=== PATIENT | female | born 2000 | race American Indian/Alaskan Native ===

== ENCOUNTER 2020-12-25 11:21 | Outpatient (CLI) | payer OTHER ==
[2020-12-25 12:34] LABS: Hematocrit 42.6 % (30.3-42.9); Hemoglobin 14.5 gm/dl (10.1-14.3); Mean Corpuscular HGB Conc 34 % (30-34); Mean Corpuscular Volume 94 fl (79-97); Platelet Count 157 K/mm3 (140-440); Red Blood Count 4.55 M/mm3 (3.65-5.03); Red Cell Distribution Width 14.7 % (13.2-15.2)
[2020-12-25 12:44] LABS: Bacteria,Urine 4+ /HPF (Negative); Bilirubin,Urine NEG (Negative); Blood,Urine NEG (Negative); Color,Urine Amber (Yellow); Mucus,Urine 2+ /HPF; Urobilinogen,Urine < 2.0 mg/dL (<2.0)
[2020-12-25 12:45] LABS: Protein,Urine >500 mg/dL (Negative)
[2020-12-25 12:57] LABS: Alanine Aminotransferase 10 units/L (7-56)
--- NOTE | 2020-12-25 13:02 | Ultrasound Report ---
Limited OB Ultrasound Biophysical profile ultrasound HISTORY: Here to evaluate RONNY and BPP. TECHNIQUE: Grayscale and color imaging performed. COMPARISON: None FINDINGS: There is a single viable intrauterine gestation with cephalic presentation and RONNY of 24 cm. Heart ra te is 147 bpm. On biophysical profile, the fetus received a score of 2 out of 2 for movement, RONNY, tone, and breathi ng. Total score was 8 out of 8. IMPRESSION: Single viable intrauterine gestation as above with normal BPP. Signer Name: Stanislaw Valentine MD Signed: 12/25/2020 12:57 PM Workstation Name: [id number]
[2020-12-25 13:16] VITALS: BP 140/85
[2020-12-25] MEDS ORDERED: LACTATED RINGERS 1,000 ML IV SCH (13:30)
[2020-12-25] MEDS ORDERED: ceFAZolin/NS 1 GM/50 ML 1 GM/50 ML BAG IV ONE (14:16)
== END 2020-12-25 14:27 | disposition home or self-care (01) ==
LOC: TRG 11:21 → APU 11:22 → TRG 14:27
PROVIDERS: ATTEND Obstetrics & Gynecology
DX: O26.893 Other specified pregnancy related conditions, third trimester (principal); R03.0 Elevated blood-pressure reading, without diagnosis of hypertension; O47.03 False labor before 37 completed weeks of gestation, third trimester; Z3A.36 36 weeks gestation of pregnancy
CPT/HCPCS: 36415; 59025; 76815; 76819; 81001; 82565; 83615; 84450; 84460; 84550; 85027; 87086; 96361; 96365; J0690; J7120; 96360

== ENCOUNTER 2020-12-28 21:43 | Inpatient (IN) | payer OTHER ==
[2020-12-28] MEDS ORDERED: OXYTOCIN DRIP 30 UNITS/500 ML BAG IV SCH (23:45)
[2020-12-28] MEDS ORDERED: miSOPROStol 25 MCG TAB VG SCH (23:45)
[2020-12-28] MEDS ORDERED: TERBUTALINE 1 MG/1 ML INJ SUB-Q PRN (23:54)
[2020-12-28] MEDS ORDERED: ePHEDrine SULFATE 50 MG/1 ML INJ IV PRN (23:54)
[2020-12-28] MEDS ORDERED: LIDOCAINE (2%) 20 MG/1 ML VIAL 20 ML MDV INFILTRATI ONE (23:54)
[2020-12-28] MEDS ORDERED: AMPICILLIN/NS 2 GM/100 ML 2 GM/100 ML BAG IV ONE (23:54)
[2020-12-28] MEDS ORDERED: MINERAL OIL 30 ML ORAL LIQD PO PRN (23:54)
[2020-12-29] MEDS: LACTATED RINGERS 1,000 ML IV SCH ×5 (00:12→17:19)
[2020-12-29 00:35] LABS: Hematocrit 38.7 % (30.3-42.9); Hemoglobin 13.6 gm/dl (10.1-14.3); Mean Corpuscular HGB Conc 35 % (30-34); Mean Corpuscular Volume 93 fl (79-97); Platelet Count 155 K/mm3 (140-440); Red Blood Count 4.15 M/mm3 (3.65-5.03); Red Cell Distribution Width 14.3 % (13.2-15.2)
[2020-12-29 01:14] LABS: Alanine Aminotransferase 8 units/L (7-56)
[2020-12-29 02:49] LABS: Uric Acid 6.3 mg/dL (3.5-7.6)
--- NOTE | 2020-12-29 03:40 | History and Physical Report ---
History of Present Illness Date of examination: 12/29/20 Date of admission: 12/29/2020 Chief complaint: IOL History of present illness: 20-year-old G1, P0 at 37+2 admitted for induction of labor secondary to preeclampsia and gestational thrombocytopenia. The patient initiated her care late in at 18 weeks estimated gestational age. Her course is also complicated by STD exposure for which the patient was treated and history of abnormal 1 hour glucose tolerance test. Past History Past Medical History: no pertinent history Past Surgical History: no surgical history Social history: single - Obstetrical History Expected Date of Delivery: 01/17/21 Actual Gestation: 37 Week(s) 2 Day(s) : 1 Para: 0 Hx # Term Pregnancies: 0 Number of Pregnancies: 0 Spontaneous Abortions: 0 Induced : 0 Number of Living Children: 0 Medications and Allergies Allergies Allergy/AdvReac Type Severity Reaction Status Date / Time shellfish derived AdvReac Intermediate Nausea Verified 12/25/20 11:47 Active Meds: Active Medications Butorphanol Tartrate (Butorphanol 2 Mg/1 Ml Inj) 2 mg IV Q2H PRN PRN Reason: Pain , Severe (7-10) Ephedrine Sulfate (Ephedrine Sulfate 50 Mg/1 Ml Inj) 10 mg IV Q2M PRN PRN Reason: Hypotension Oxytocin/Sodium Chloride (Pitocin/Ns 30 Unit/500ml) 30 units in 500 mls @ 2 mls/hr IV TITR ROSA MARIA; Protocol Lactated Ringer's (Lactated Ringers) 1,000 mls @ 125 mls/hr IV DIRECT ROSA MARIA Last Admin: 12/29/20 00:12 Dose: 125 mls/hr Documented by: Oxytocin/Sodium Chloride (Pitocin/Ns 30 Unit/500ml) 30 units in 500 mls @ 40 mls/hr IV TITR ROSA MARIA; Protocol Mineral Oil (Mineral Oil 30 Ml Oral Liqd) 30 ml PO QHS PRN PRN Reason: Constipation Misoprostol (Misoprostol 25 Mcg Tab) 25 mcg VG Q4H ROSA MARIA Last Admin: 12/29/20 00:33 Dose: 25 mcg Documented by: Terbutaline Sulfate (Terbutaline 1 Mg/1 Ml Inj) 0.25 mg SUB-Q ONCE PRN PRN Reason: Hyperstimulation/Hypertonicity Review of Systems All systems: negative - Vital Signs Vital signs: Vital Signs Pulse BP 100 H 127/88 12/28/20 22:23 12/28/20 22:23 Temp Pulse Resp BP Pulse Ox 98.9 F 70 18 137/97 83 L 12/28/20 22:29 12/29/20 03:34 12/28/20 22:29 12/29/20 03:34 12/29/20 03:32 - Physical Exam Breasts: Positive: deferred Cardiovascular: Regular rate Lungs: Positive: Clear to auscultation Abdomen: Positive: normal appearance Results Result Diagrams: 12/28/20 23:13 12/28/20 23:13 Abnormal lab results 12/28/20 12/28/20 Range/Units 23:13 23:13 MCH 33 H (28-32) pg MCHC 35 H (30-34) % Creatinine 0.5 L (0.6-1.2) mg/dL Lactate Dehydrogenase 244 H (91-180) units/L All other labs normal. Assessment and Plan - Patient Problems (1) Preeclampsia Current Visit: Yes Status: Acute Plan to address problem: admit for IOL
[2020-12-29] MEDS: AMPICILLIN/NS 1 GM/50 ML 1 GM/50 ML BAG IV SCH ×3 (05:06→16:08)
[2020-12-29] MEDS ORDERED: DINOPROSTONE 10 MG VAG SUPP VG ONE (05:40)
[2020-12-29 06:38] LABS: Bilirubin,Urine NEG (Negative); Blood,Urine NEG (Negative); Color,Urine Yellow (Yellow); Mucus,Urine FEW /HPF; Urobilinogen,Urine < 2.0 mg/dL (<2.0)
[2020-12-29] MEDS ORDERED: OXYTOCIN 10 UNIT/1 ML INJ ONE (10:00)
--- NOTE | 2020-12-29 10:39 | Event Note ---
Date: 12/29/20 During cervical exam, SROM with clear fluid. Cervix /-2. FSE placed. Regular uterine contractions
[2020-12-29] MEDS: OXYTOCIN DRIP 30 UNITS/500 ML BAG IV SCH ×2 (11:39→15:01)
[2020-12-29] MEDS: BUTORPHANOL 2 MG/1 ML INJ IV PRN ×2 (13:05→15:34)
[2020-12-29] MEDS ORDERED: TERBUTALINE 1 MG/1 ML INJ SUB-Q ONE (13:18)
[2020-12-29] MEDS ORDERED: LIDOCAINE JELLY (2%) 5 ML TOPICAL TP ONE (13:49)
[2020-12-29] MEDS ORDERED: METOCLOPRAMIDE 10 MG/2 ML INJ ONE (18:47)
[2020-12-29] MEDS ORDERED: BICITRA ORAL LIQD 30ML ONE (18:47)
[2020-12-29] MEDS ORDERED: FAMOTIDINE 20 MG/2 ML INJ IV ONE (18:48)
--- NOTE | 2020-12-29 18:52 | Anesthesia Day of Surgery ---
Anesthesia Day of Surgery - Day of Surgery Patient Examined: Yes Patient H&P Reviewed: Yes Patient is NPO: Yes
--- NOTE | 2020-12-29 18:52 | Anesthesia Consultation ---
Anesthesia Consult and Med Hx Date of service: 12/29/20 - Airway Anesthetic Teeth Evaluation: Good ROM Head & Neck: Adequate Mental/Hyoid Distance: Adequate Mallampati Class: Class II Intubation Access Assessment: Probably Good - Pulmonary Exam CTA: Yes - Cardiac Exam Cardiac Exam: RRR - Pre-Operative Health Status ASA Pre-Surgery Classification: ASA3 Proposed Anesthetic Plan: Spinal - Pulmonary Hx Asthma: Yes (as a child) - Cardiovascular System Hx Hypertension: Yes (PIH) - Central Nervous System Hx Seizures: No Hx Psychiatric Problems: No - Endocrine Hx Renal Disease: No Hx Hypothyroidism: No Hx Hyperthyroidism: No - Hematic Hx Anemia: Yes Hx Sickle Cell Disease: No - Other Systems Hx Alcohol Use: Yes
[2020-12-29] MEDS ORDERED: ceFAZolin/STERILE WATER 2 GM/20 ML SYRINGE IV NR (19:00)
[2020-12-29] MEDS ORDERED: FAMOTIDINE 20 MG/2 ML INJ IV NR (19:00)
[2020-12-29] MEDS ORDERED: METOCLOPRAMIDE 10 MG/2 ML INJ IV NR (19:00)
[2020-12-29] MEDS ORDERED: LANOLIN/ZINC/DIMETHICONE (LANSINOH) 7 GM TP PRN (19:37)
[2020-12-29] MEDS ORDERED: NALOXONE 0.4 MG/1 ML INJ IV PRN (19:37)
[2020-12-29] MEDS ORDERED: WITCH HAZEL/ GLYCERIN PAD TP PRN (19:37)
--- NOTE | 2020-12-29 19:37 | Event Note ---
Date: 12/29/20 The patient is being induced for preeclampsia. Her intrapartum course has been complicated by nonreassuring heart rate tracing with evidence of late decelerations. Unable to obtain adequate contractility secondary to the tracing. The patient was counseled for primary delivery. The risk and benefits of the procedure were discussed with the patient.
[2020-12-29] MEDS ORDERED: MORPHINE 4 MG/1 ML INJ IV PRN (19:38)
[2020-12-29] MEDS ORDERED: ONDANSETRON 4 MG/2 ML INJ IV PRN (19:38)
[2020-12-29] MEDS ORDERED: IBUPROFEN 600 MG TAB PO PRN (19:38)
[2020-12-29] MEDS ORDERED: ACETAMINOPHEN 325 MG TAB PO PRN (19:38)
[2020-12-29] MEDS ORDERED: KETOROLAC 30 MG/1 ML INJ IV PRN (19:38)
--- NOTE | 2020-12-29 19:42 | Procedure Note ---
OB Delivery Note - Delivery Date of Delivery: 12/29/20 Surgeon: MIKI ARNOLD Estimated blood loss: other (600ml) - Section Preop diagnosis: nonreassuring FHR tracing Postop diagnosis: same section procedure: section, primary low transverse Disposition: PACU Complications: none - A at 1 minute: 8 at 5 minutes: 9 Infant Gender: Male (weight 6lbs 7oz)
--- NOTE | 2020-12-29 19:42 | Operative Report ---
Operative Report Operative Report: Date of surgery: December 29, 2020 Preoperative diagnosis: at 37+2 weeks; preeclampsia; nonreassuring f etal heart rate tracing Postoperative diagnosis: Same as above Procedure: Primary low transverse delivery Surgeon: Niharika Payne M.D. Anesthesia: Regional Estimated blood loss: 600 mL IV fluids: 1 L Urine output: 100 mL Findings: Liveborn male infant with Apgars of 8 and 9 weight 6 pounds 7 ounces Indications: 20-year-old G1, P0 at 37+2 weeks presents for induction of labor for preeclampsia. Intrapartum course is complicated by nonreassuring heart rate tracing Procedure: The patient was taken to the operating room and given regional anesthesia without complication. She was prepped and draped in a normal sterile fashion. A Pfannenstiel skin incision was made down to layer the fascia which was nicked in the midline extended laterally with the Bovie cautery. The superior aspect of the rectus fascia was grasped with Hayward clamps x2 and the rectus muscles off sharply. This was done in inferior fashion as well. The rectus muscle sep arated midline and peritoneum entered bluntly. An Eloy retractor was then inserted. A bladder blade was placed. The vesicouterine peritoneum was then entered sharply with Metzenbaum scissors. A bladder flap was created digitally. A low transverse uterine incision was then made and extended digitally. There was clear fluid upon entry into the uterine cavity. The head was delivered through the incision with fundal pressure. A nuchal cord x1 was manually reduced. The cord was clamped and cut x2 and was passed off to pediatrics. The placenta was then manually extracted. The uterus was then exteriorized and cleared of clots and debris. The uterine incision was then closed in a running locked fashion with 0 Vicryl additional imbricating stitch was applied for 2 layer closure. The serosa was then reapproximated with 3-0 Vicryl. The posterior cul-de-sac was then copiously irrigated. The uterus was replaced back into the abdomen and pelvis were the gutters were then irrigated. The Eloy retractor was then removed. The peritoneum was then reapproximated with 3-0 Vicryl incorporating the rectus muscle. The fascia was then closed with 0 Vicryl in a running fashion. The skin was then reapproximated with 3-0 Monocryl on a Eduardo needle subcuticular fashion. Steri-Strips to place across the incision and a Crede procedures performed at the end of the surgery. A pressure dressing was applied to the incision. The surgery productive of a liveborn male infant with Apgars of 8 and 9 weight 6 pounds 7 ounces. The patient was taken to the recovery room in stable condition. All sponge laps and needle counts correct x2.
[2020-12-29] MEDS ORDERED: ceFAZolin/STERILE WATER 2 GM/20 ML SYRINGE IV ONE (19:43)
[2020-12-29] MEDS ORDERED: WATER FOR IRRIG STERILE 1,500 ML BOTTLE IR ONE (19:43)
[2020-12-29] MEDS ORDERED: SODIUM CHLORIDE 0.9% IRR 1,500 ML BOTTLE IR ONE (19:43)
[2020-12-29] MEDS ORDERED: BICITRA ORAL LIQD 30ML PO ONE (19:46)
[2020-12-29] MEDS ORDERED: BUPIVACAINE/PF (0.5%) 5 MG/1 ML 30 ML VIAL INFILTRATI ONE (20:01)
[2020-12-29] MEDS ORDERED: KETOROLAC 30 MG/1 ML INJ ONE (20:01)
[2020-12-29] MEDS ORDERED: GLYCOPYRROLATE 0.4 MG/2 ML INJ ONE (20:01)
[2020-12-29] MEDS ORDERED: dexAMETHasone 20 MG/5 ML VIAL ONE (20:01)
[2020-12-29] MEDS ORDERED: ONDANSETRON 4 MG/2 ML INJ ONE (20:01)
[2020-12-29] MEDS ORDERED: LACTATED RINGERS 1,000 ML ONE (20:33)
[2020-12-29] MEDS ORDERED: MAGNESIUM SULFATE 4 GM/100 ML BAG IV ONE (20:38)
[2020-12-29] MEDS ORDERED: D5W/LACTATED RINGERS 1,000 ML IV SCH (21:00)
[2020-12-29] MEDS ORDERED: OXYTOCIN DRIP 30 UNITS/500 ML BAG IV SCH (21:00)
[2020-12-29] MEDS ORDERED: MAGNESIUM SULFATE 40GM/1000ML 40 GM/1,000 ML BAG IV SCH (21:00)
--- NOTE | 2020-12-29 21:01 | Progress Note ---
Spinal Anesthesia Block - Spinal Anesthesia Block Start Time: 19:46 Stop Time: 19:49 Performed by:: KENROY HAYES Procedure: Sitting, sterile chlorahexadine 0.5% prep/drape, 1% lidocaine skin local, 25G spinal needle + introducer at L3-4, + CSF, - Heme, [1.9 ml 0.5% bupivacaine + 10 mcg dexmedetomidine] injected, drape removed, patient positioned supine with left uterine displacement, and spinal level verified to be adequate prior to surgery.
--- NOTE | 2020-12-29 21:02 | Progress Note ---
Regional Anesthesia Block - Regional Anesthesia Block Start Time: 20:50 Stop Time: 20:55 Performed By:: KENROY HAYES Procedure: U/S guided bilateral tap block performed for post-operative pain requested by Dr. Hernandes. H&P & labs reviewed. Procedure explained, questions answered, consent obtained. Patient in the supine position with ekg, blood pressure cuff and pulse ox on and working in PACU. Timeout performed immediately before start of procedure. Probe placed in the mid-axillary line and the external oblique, internal oblique, and transverse abdominus muscles identified. Skin was cleansed with chlorahexadine 0.5% and allowed to dry. A 4" 20 G Hylton echogenic needle was advanced in plane until the tip was in the fascial plane between the internal oblique and the transverse abdominus. After negative aspiration 35 ml/side of [30 ml 0.5% Bupivacaine], [10 mg dexamethasone], and [40 ml sterile saline] was injected in 5 ml increments with negative aspiration in between. Patient tolerated procedure well.
[2020-12-30] MEDS: oxyCODONE /ACETAMINOPHEN 5-325MG TAB PO PRN ×4 (05:33→22:31)
[2020-12-30 09:11] LABS: Hemoglobin 11.7 gm/dl (10.1-14.3)
--- NOTE | 2020-12-30 11:05 | Progress Note ---
Assessment and Plan - Patient Problems (1) Preeclampsia Current Visit: Yes Status: Acute Plan to address problem: patient doing well will complete 24 hrs magnesium Subjective - Subjective Date of service: 12/30/20 Interval history: Patient without complaints. She tolerated clear diet. Pain well controlled Patient reports: appetite normal, pain well controlled : doing well Objective - Vital Signs Latest vital signs: Vital Signs Temp Pulse Resp BP BP Pulse Ox 12/30/20 11:02 75 100 12/30/20 10:57 74 100 12/30/20 10:54 64 138/93 12/30/20 10:53 76 142/93 12/30/20 10:52 82 100 12/30/20 10:47 77 100 12/30/20 10:42 74 100 12/30/20 10:37 75 100 12/30/20 10:32 67 100 12/30/20 10:27 72 100 12/30/20 10:22 75 100 12/30/20 10:17 72 100 12/30/20 10:12 84 100 12/30/20 10:07 70 100 12/30/20 10:02 82 100 12/30/20 09:57 74 100 12/30/20 09:52 75 100 12/30/20 09:49 82 136/88 12/30/20 09:47 73 98 12/30/20 08:51 77 135/87 12/30/20 07:51 85 134/81 12/30/20 05:50 76 129/93 12/30/20 05:33 18 12/30/20 04:51 73 143/88 12/30/20 03:45 64 133/98 12/30/20 02:45 57 L 143/86 12/30/20 01:46 54 L 151/95 12/30/20 01:28 70 99 12/30/20 01:23 65 99 12/30/20 01:18 61 99 12/30/20 01:13 63 98 12/30/20 01:08 57 L 99 12/30/20 01:03 62 99 12/30/20 00:58 60 99 12/30/20 00:53 58 L 99 12/30/20 00:48 53 L 98 12/30/20 00:45 55 L 139/87 12/30/20 00:43 55 L 100 12/30/20 00:38 55 L 99 12/30/20 00:33 53 L 99 12/30/20 00:28 52 L 99 12/30/20 00:23 51 L 98 12/30/20 00:18 54 L 100 12/30/20 00:14 59 L 93 12/30/20 00:13 57 L 97 12/30/20 00:08 71 100 12/30/20 00:03 56 L 100 12/30/20 00:02 55 L 88 12/29/20 23:58 57 L 99 12/29/20 23:53 68 99 12/29/20 23:48 60 100 12/29/20 23:46 53 L 126/86 12/29/20 23:43 66 100 12/29/20 23:38 73 99 12/29/20 23:33 63 100 12/29/20 23:28 74 99 12/29/20 23:24 100 H 94 12/29/20 23:23 98 H 99 12/29/20 23:18 73 100 12/29/20 23:13 61 98 12/29/20 23:12 93 12/29/20 23:08 73 98 12/29/20 23:03 68 99 12/29/20 22:58 80 99 12/29/20 22:53 63 100 12/29/20 22:52 97.6 F 69 16 124/85 100 12/29/20 22:46 75 124/85 12/29/20 22:00 79 17 131/99 99 12/29/20 21:45 73 12 127/90 99 12/29/20 21:30 64 12 122/85 99 12/29/20 21:15 85 12 120/87 100 12/29/20 21:00 81 15 110/72 99 12/29/20 20:55 82 14 116/61 98 12/29/20 20:50 97.5 F L 88 14 107/62 99 12/29/20 19:35 62 100 12/29/20 19:29 56 L 100 12/29/20 19:24 73 100 12/29/20 19:20 60 100 12/29/20 19:14 73 100 12/29/20 19:10 58 L 155/83 100 12/29/20 19:04 92 H 100 12/29/20 19:03 98.3 F 92 H 16 113/72 99 12/29/20 18:59 80 100 12/29/20 18:54 69 100 12/29/20 18:51 75 138/90 12/29/20 18:50 83 94 12/29/20 18:49 77 99 12/29/20 18:44 68 99 12/29/20 18:42 67 150/91 12/29/20 18:40 66 158/93 12/29/20 18:39 57 L 100 12/29/20 18:34 59 L 99 12/29/20 18:29 55 L 99 12/29/20 18:24 56 L 100 12/29/20 18:19 77 99 12/29/20 18:16 64 140/72 12/29/20 18:14 67 100 12/29/20 18:11 62 159/89 12/29/20 18:09 69 100 12/29/20 18:04 67 99 12/29/20 18:03 97.8 F 69 14 153/86 100 12/29/20 18:01 59 L 153/86 12/29/20 18:00 73 159/95 12/29/20 17:59 73 99 12/29/20 17:54 79 100 12/29/20 17:49 75 100 12/29/20 17:44 73 99 12/29/20 17:41 62 145/102 12/29/20 17:39 70 100 12/29/20 17:34 69 100 12/29/20 17:29 65 100 12/29/20 17:24 65 100 12/29/20 17:19 74 99 12/29/20 17:17 64 130/76 12/29/20 17:15 83 88 12/29/20 17:14 62 99 12/29/20 17:10 53 L 156/94 12/29/20 17:09 55 L 99 12/29/20 17:04 65 99 12/29/20 16:59 56 L 99 12/29/20 16:55 69 91 12/29/20 16:54 80 99 12/29/20 16:49 65 100 12/29/20 16:44 71 99 12/29/20 16:40 64 121/75 12/29/20 16:39 66 97 12/29/20 16:34 64 97 05/29/21 16:29 66 98 05 16:28 66 94 05 16:24 61 97 05 16:19 65 97 05 16:16 62 128/80 05 16:14 77 100 05 16:11 68 155/97 12/29/20 16:09 71 100 05 16:04 68 97 05 16:03 65 126/82 05 16:01 75 94 05 15:59 70 97 05 15:54 65 98 05 15:53 69 92 05 15:49 63 96 12/29/20 15:44 67 96 05 15:41 75 161/96 05 15:39 69 100 05 15:34 77 100 12/29/20 15:33 77 0 L 12/29/20 15:29 85 100 12/29/20 15:24 66 98 12/29/20 15:19 88 100 12/29/20 15:14 69 99 12/29/20 15:11 77 129/93 05 15:09 62 100 05 15:08 68 94 12/29/20 15:04 68 100 12/29/20 14:59 69 99 12/29/20 14:54 69 99 12/29/20 14:49 76 99 12/29/20 14:45 98.3 F 75 14 134/83 99 12/29/20 14:44 75 100 12/29/20 14:41 78 134/83 05 14:39 81 99 05 14:34 76 98 12/29/20 14:29 76 134/97 99 12/29/20 14:24 76 99 12/29/20 14:19 74 98 05 14:14 95 H 99 12/29/20 14:11 93 H 140/96 05 14:09 91 H 97 12/29/20 14:04 74 96 05 13:59 71 97 05 13:54 72 97 05 13:49 78 97 05 13:44 74 96 05 13:40 83 128/77 05/21 13:39 71 97 12/29/20 13:34 73 98 12/29/20 13:29 85 99 12/29/20 13:24 69 99 12/29/20 13:19 83 131/66 99 12/29/20 13:18 98.9 F 83 14 131/66 100 12/29/20 13:14 69 100 12/29/20 13:10 67 133/66 12/29/20 13:09 76 100 12/29/20 13:05 71 133/70 12/29/20 13:04 80 100 12/29/20 12:59 102 H 100 12/29/20 12:54 107 H 100 12/29/20 12:49 96 H 100 12/29/20 12:44 91 H 100 12/29/20 12:42 87 156/96 12/29/20 12:39 86 100 12/29/20 12:34 80 100 12/29/20 12:29 87 100 12/29/20 12:24 76 100 12/29/20 12:19 67 100 12/29/20 12:14 73 100 12/29/20 12:10 65 133/84 12/29/20 12:09 63 100 12/29/20 12:04 78 100 12/29/20 12:00 67 133/83 12/29/20 11:59 80 100 12/29/20 11:54 98 H 100 12/29/20 11:49 86 100 12/29/20 11:44 91 H 100 12/29/20 11:42 69 149/96 12/29/20 11:39 72 100 12/29/20 11:36 75 92 12/29/20 11:34 71 100 12/29/20 11:29 87 100 12/29/20 11:24 77 100 12/29/20 11:19 68 100 12/29/20 11:14 75 100 12/29/20 11:10 62 125/79 12/29/20 11:09 68 100 Intake and Output 12/29/20 12/30/20 12/30/20 22:59 06:59 14:59 Intake Total 2902.083 Output Total 800 750 700 Balance 2102.083 -750 -700 Intake: IV 2302.083 Lactated Ringers 1,000 ml 1000.000 @ 125 mls/hr IV DIRECT [facility] Rx#:[id number] PITOCin/NS 30 UNIT/500ML 2.083 30 units In 500 ml @ 2 mls/hr IV TITR [facility] Rx#: [id number] Oral 600 Output: Urine 800 750 700 Indwelling Catheter 600 550 700 Uretheral ([place]) 200 Other: Total, Intake Amount 300 Total, Output Amount 600 200 700 - Exam Incision: Present: dressed
--- NOTE | 2020-12-30 14:11 | Post Anesthesia Evaluation ---
- Post Anesthesia Evaluation Patient Participated: Yes Airway Patent: Yes Stable Respiratory Function: Yes Nausea/Vomiting: No Temp > 96.8F: Yes Pain Manageable: Yes Adequeate Hydration: Yes Anesthesia Complications: No Block Receding Appropriately: Yes
[2020-12-31] MEDS: oxyCODONE /ACETAMINOPHEN 5-325MG TAB PO PRN ×3 (04:37→22:20)
--- NOTE | 2020-12-31 13:36 | Progress Note ---
Assessment and Plan - Patient Problems (1) Preeclampsia Current Visit: Yes Status: Acute Plan to address problem: patient doing well consider discharge home today Subjective - Subjective Date of service: 12/31/20 Interval history: Patient without complaints. She tolerated regular diet. Pain well controlled Patient reports: appetite normal, voiding normally, pain well controlled Rose: doing well Objective - Vital Signs Latest vital signs: Vital Signs Temp Pulse Resp BP BP Pulse Ox 12/31/20 09:06 98.3 F 71 18 129/85 99 12/31/20 05:00 78 106/53 99 12/31/20 01:35 98.0 F 74 20 137/92 98 12/31/20 00:53 86 100 12/31/20 00:51 86 144/86 12/31/20 00:48 72 98 12/31/20 00:43 73 97 12/31/20 00:38 82 99 12/31/20 00:33 97.9 F 72 98 12/31/20 00:28 85 99 12/31/20 00:23 74 99 12/31/20 00:18 76 98 12/31/20 00:13 87 99 12/31/20 00:08 88 100 12/31/20 00:03 79 99 12/30/20 23:58 73 98 12/30/20 23:53 81 99 12/30/20 23:50 82 132/84 12/30/20 23:48 83 99 12/30/20 23:43 92 H 98 12/30/20 23:38 91 H 99 12/30/20 23:33 83 100 12/30/20 23:28 91 H 99 12/30/20 23:23 90 100 12/30/20 23:18 89 99 12/30/20 23:13 95 H 97 12/30/20 23:08 97 H 99 12/30/20 23:03 94 H 100 12/30/20 22:58 90 100 12/30/20 22:53 93 H 100 12/30/20 22:52 89 94 12/30/20 22:51 91 H 131/83 12/30/20 22:48 89 100 12/30/20 22:47 59 L 91 12/30/20 22:43 100 H 100 12/30/20 22:38 93 H 99 12/30/20 22:33 111 H 99 12/30/20 22:28 92 H 98 12/30/20 22:23 90 99 12/30/20 22:18 96 H 99 12/30/20 22:13 105 H 100 12/30/20 22:08 103 H 100 12/30/20 22:03 98 H 100 12/30/20 21:58 99 H 100 12/30/20 21:53 94 H 100 12/30/20 21:51 94 H 151/97 12/30/20 21:48 89 98 12/30/20 21:43 86 100 12/30/20 21:38 92 H 99 12/30/20 21:33 90 100 12/30/20 21:28 89 100 12/30/20 21:23 89 100 12/30/20 21:18 88 99 12/30/20 21:13 83 99 12/30/20 21:08 96 H 98 12/30/20 21:03 91 H 98 12/30/20 20:58 86 98 12/30/20 20:53 100 H 98 12/30/20 20:50 84 128/83 12/30/20 20:48 96 H 99 12/30/20 20:43 74 98 12/30/20 20:38 79 97 12/30/20 20:33 78 98 12/30/20 20:28 83 98 12/30/20 20:23 82 98 12/30/20 20:18 75 98 12/30/20 20:13 86 99 12/30/20 20:08 79 98 12/30/20 20:03 86 99 12/30/20 19:58 85 100 12/30/20 19:53 84 100 12/30/20 19:50 88 126/80 12/30/20 19:48 90 100 12/30/20 19:43 83 98 12/30/20 19:38 98 H 98 12/30/20 19:33 87 99 12/30/20 19:28 88 99 12/30/20 19:23 81 100 12/30/20 19:18 90 100 12/30/20 19:13 98.5 F 97 H 16 100 12/30/20 19:08 89 98 12/30/20 19:03 94 H 99 12/30/20 18:58 102 H 99 12/30/20 18:53 103 H 99 12/30/20 18:51 88 120/73 12/30/20 18:48 97 H 100 12/30/20 18:43 86 99 12/30/20 18:38 101 H 98 12/30/20 18:33 101 H 100 12/30/20 18:28 99 H 99 12/30/20 18:23 99 H 98 12/30/20 18:18 94 H 99 12/30/20 18:13 96 H 99 12/30/20 18:08 94 H 100 12/30/20 18:03 98 H 100 12/30/20 17:58 97 H 99 12/30/20 17:53 97 H 95 12/30/20 17:52 102 H 89 12/30/20 17:48 101 H 98 12/30/20 17:43 94 H 99 12/30/20 17:37 103 H 98 12/30/20 17:33 93 H 99 12/30/20 17:28 88 100 12/30/20 17:23 98 H 99 12/30/20 17:18 96 H 100 12/30/20 17:13 92 H 99 12/30/20 17:09 98 H 87 12/30/20 17:08 122 H 98 12/30/20 17:03 76 99 12/30/20 16:58 78 98 12/30/20 16:53 78 99 12/30/20 16:51 77 119/70 12/30/20 16:48 77 99 12/30/20 16:43 77 99 12/30/20 16:38 75 99 12/30/20 16:33 77 100 12/30/20 16:28 75 100 12/30/20 16:23 90 99 12/30/20 16:18 72 100 12/30/20 16:13 84 100 12/30/20 16:08 93 H 100 12/30/20 16:03 91 H 100 12/30/20 16:00 96 H 89 12/30/20 15:58 94 H 100 12/30/20 15:53 95 H 100 12/30/20 15:50 92 H 135/88 12/30/20 15:48 104 H 100 12/30/20 15:45 75 133/83 12/30/20 15:43 87 100 12/30/20 15:38 85 100 12/30/20 15:33 84 100 0521 15:28 87 100 12/30/20 15:23 88 100 12/30/20 15:18 88 100 12/30/20 15:12 88 99 12/30/20 15:08 75 100 12/30/20 15:03 87 99 12/30/20 14:58 89 100 12/30/20 14:53 70 99 12/30/20 14:48 82 98 12/30/20 14:43 85 99 12/30/20 14:38 92 H 99 12/30/20 14:33 71 100 12/30/20 14:28 71 100 12/30/20 14:23 78 99 12/30/20 14:21 76 94 12/30/20 14:17 81 99 12/30/20 14:16 98 F 78 16 127/90 100 12/30/20 14:15 68 127/90 12/30/20 14:12 66 100 12/30/20 14:08 70 99 12/30/20 14:03 81 99 12/30/20 13:58 72 98 12/30/20 13:53 90 98 12/30/20 13:51 85 129/87 12/30/20 13:47 73 99 12/30/20 13:43 80 99 12/30/20 13:37 77 99 Intake and Output 12/30/20 12/31/20 12/31/20 22:59 06:59 14:59 Output Total 3750 400 Balance -3750 -400 Output: Urine 3750 400 Indwelling Catheter 3750 Void 400 Other: Total, Output Amount 900 400 # Voids Void 1 - Labs Labs: Abnormal lab results 12/30/20 Range/Units 18:05 Magnesium 5.70 H (1.7-2.3) mg/dL
--- NOTE | 2020-12-31 13:37 | Discharge Summary ---
Providers - Providers Date of Admission: 12/29/20 19:37 Date of discharge: 12/31/20 Attending physician: MIKI ARNOLD Primary care physician: MIKI ARNOLD Hospitalization Reason for admission: induction of labor Delivery: Procedure: section, primary low transverse Discharge diagnosis: IUP at term delivered Hospital course: Patient admitted for preeclampsia. Complicated by non-reassuring tracing. Patient underwent primary c/s. Received magnesium Condition at discharge: Good Disposition: DC-01 TO HOME OR SELFCARE - Discharge Diagnoses (1) Preeclampsia Status: Acute Plan - Discharge Medications Prescriptions: Docusate Sodium [Colace] 100 mg PO BID PRN #30 capsule PRN Reason: Constipation Ibuprofen [Motrin] 800 mg PO Q8HR PRN #60 tablet PRN Reason: Pain , Severe (7-10) oxyCODONE /ACETAMINOPHEN [Percocet 5/325] 1 tab PO Q6HR PRN #30 tablet PRN Reason: Pain - Provider Discharge Summary Activity: no sex for 6 weeks, no heavy lifting 4 weeks, no strenuous exercise Diet: routine Instructions: routine Additional instructions: [] Smoking cessation referral if applicable(refer to patient education folder for contact #) [] Refer to [facility]'s [facility] Booklet Call your doctor immediately for: * Fever > 100.5 * Heavy vaginal bleeding ( >1 pad per hour) * Severe persistent headache * Shortness of breath * Reddened, hot, painful area to leg or breast * Drainage or odor from incision. * Keep incision clean and dry at all times and follow doctor's instructions regarding bathing/showering schedule post op exam in 2 weeks - Follow up plan
[2021-01-01] MEDS: oxyCODONE /ACETAMINOPHEN 5-325MG TAB PO PRN ×2 (05:18→11:57)
[2021-01-01 15:51] VITALS: BP 120/84
== END 2021-01-01 16:50 | disposition home or self-care (01) | DRG 765 ==
LOC: TRG 21:43 → LD 21:44 → TRG 12-29 19:37 → OB 12-31 01:25
PROVIDERS: ADMIT Obstetrics & Gynecology; ATTEND Obstetrics & Gynecology
PROC: 10D00Z1 Extraction of Products of Conception, Low, Open Approach (ICD-10-PCS; principal; 2020-12-29)
DX: O14.94 Unspecified pre-eclampsia, complicating childbirth (principal); O99.12 Other diseases of the blood and blood-forming organs and certain disorders involving the immune mechanism complicating childbirth; Z3A.37 37 weeks gestation of pregnancy; Z20.822 Contact with and (suspected) exposure to COVID-19; Z37.0 Single live birth; O76 Abnormality in fetal heart rate and rhythm complicating labor and delivery; D69.6 Thrombocytopenia, unspecified; O69.81X0 Labor and delivery complicated by cord around neck, without compression, not applicable or unspecified; Z91.013 Allergy to seafood
CPT/HCPCS: 36415; 59200; 81001; 82565; 83615; 83735; 84450; 84460; 84550; 85014; 85018; 85027; 86850; 86900; 86901; 99211; G0378; A6250; G0463; J0290; J0595; J0690; J1100; J1885; J2405; J2590; J2765; J3105; J3475; J3490; J7120; U0003